=== PATIENT | female | born 1995 | race Caucasian/White ===

== ENCOUNTER 2023-08-08 14:19 | Outpatient (CLI) | payer MEDICAID ==
[2023-08-08 18:26] LABS: CREATININE 0.9 mg/dL (0.6-1.3); POTASSIUM 3.9 mmol/L (3.5-4.5)
== END 2023-08-08 14:20 | disposition home or self-care (01) ==
LOC: LAB.N 14:19
PROVIDERS: ATTEND Physician Assistant
DX: E83.39 Other disorders of phosphorus metabolism (principal)
CPT/HCPCS: 36415; 80048

== ENCOUNTER 2023-10-30 18:52 | Emergency (ER) | payer MEDICAID ==
[2023-10-30 19:08] VITALS: BP 103/54; O2SAT 100
[2023-10-30 19:30] LABS: RAPID STREP SCREEN POSITIVE (Negative)
--- NOTE | 2023-10-30 19:36 | ED Physician Documentation ---
PD HPI URI - Stated complaint Stated Complaint: SORE THROAT - Chief complaint Chief Complaint: Heent - History obtained from History obtained from: Patient - Additional information Additional information: 28-year-old female with no significant past medical history presents with 2 days of sore throat, intermittent fevers, body aches. Also reporting some lumbar back pain after laying in bed for the last 2 days. Noticed some white spots on the back of her throat today and is here because of concern for strep throat. Pain with swallowing, denies voice changes, drooling, cough. Review of Systems Constitutional: reports: Fever, Chills. denies: Myalgias, Fatigue Ears: denies: Loss of hearing, Ear pain, Drainage/discharge Nose: denies: Rhinorrhea / runny nose, Congestion, Foreign Body Throat: reports: Sore throat, Swollen tonsils. denies: Dental pain / toothache, Oral lesions / sores, Swallowed foreign body Cardiac: denies: Chest pain / pressure, Palpitations Respiratory: denies: Dyspnea, Cough, Wheezing GI: denies: Abdominal Pain, Nausea, Vomiting PD PAST MEDICAL HISTORY - Past Medical History Past Medical History: No Cardiovascular: None Respiratory: None Neuro: None Endocrine/Autoimmune: None GI: None DIRECTOR INSURANCE: None : Chronic bladder infection HEENT: None Psych: Anxiety Musculoskeletal: None Derm: None - Past Surgical History Past Surgical History: Yes - Present Medications Home Medications: Ambulatory Orders Medication Instructions Recorded Confirmed Amoxicillin 500 mg PO BID #20 cap 10/30/23 Dextroamphetamine/Amphetamine 1 tab PO DAILY 10/30/23 10/30/23 [Adderall 20 mg Tablet] norethindrone-e.estradioL-iron 1 tab PO DAILY 10/30/23 10/30/23 [Adri Fe 1.5-30 Tablet] - Allergies Allergies/Adverse Reactions: Allergies Allergy/AdvReac Type Severity Reaction Status Date / Time No Known Drug Allergies Allergy Verified 10/30/23 19:02 - Social History Does the pt smoke?: Yes Smoking Status: Current every day smoker Does the pt drink ETOH?: Yes Does the pt have substance abuse?: No - Immunizations Immunizations are current?: No - POLST Patient has POLST: No PD ED PE NORMAL - Vitals Vital signs reviewed: Yes - General General: Alert and oriented X 3, No acute distress, Well developed/nourished - HEENT HEENT: Atraumatic, PERRL, EOMI, Moist mucous membranes, Dentition benign, Other (Pharyngeal erythema with white exudates bilaterally, uvula midline) - Neck Neck: Supple, no meningeal sign, No bony TTP, Other (Tender anterior cervical adenopathy) - Cardiac Cardiac: RRR - Respiratory Respiratory: No respiratory distress - Derm Derm: Normal color, Warm and dry, No rash - Neuro Neuro: Alert and oriented X 3, fire pilot 2-12 intact, No motor deficit, Normal speech Results - Vitals Vitals: Vital Signs - 24 hr 10/30/23 10/30/23 18:55 19:11 Temperature 37 C Heart Rate 91 Respiratory 22 17 Rate Blood Pressure 103/54 L O2 Saturation 100 Oxygen O2 Source Room air - Labs Labs: Laboratory Tests 10/30/23 19:05 Group A Strep Rapid POSITIVE H PD Medical Decision Making - ED course Complexity details: reviewed results, re-evaluated patient, considered differential, d/w patient ED course: Sore throat and fever. Positive for rapid strep. Airway patent, no evidence of abscess. Given Decadron for symptoms and antibiotics sent to pharmacy of choice. Supportive care measures counseled for home. Note for work provided. Departure - Departure Disposition: Home, Self Care Clinical Impression: Strep pharyngitis Condition: Stable Instructions: ED Strep Pharyngitis Conf Prescriptions: Amoxicillin 500 mg PO BID #20 cap Comments: Your strep test today was positive. You have been given steroids which will help your sore throat and antibiotics have been sent to the [facility] in [place]. Take Tylenol and ibuprofen as needed for fever or discomfort. Make sure to drink plenty of fluids and stay hydrated. Finish all of your antibiotics as prescribed even if you feel improved. Forms: PCP List Discharge Date/Time: 10/30/23 20:06
[2023-10-30] MEDS: KETOROLAC 30 MG/ML VIAL IM STA (19:43)
[2023-10-30] MEDS: CHERRY SYRUP 10 ML UDC PO ONE (19:43)
[2023-10-30] MEDS: DEXAMETHASONE 10 MG/ML VIAL PO STA (19:44)
== END 2023-10-30 20:06 | disposition home or self-care (01) ==
LOC: ED 18:52
DX: J02.0 Streptococcal pharyngitis (principal)
CPT/HCPCS: 87430; 96372; 99283; A9270